=== PATIENT | female | born 1930 | race Two or more races ===

== ENCOUNTER → 2018-10-25 | Outpatient (CLI) | payer MEDICARE | END | disposition home or self-care (01) | LOC: LAB 11:55 | DX: M17.12 Unilateral primary osteoarthritis, left knee (principal); Z91.81 History of falling | CPT/HCPCS: 73562; 73610 ==

== ENCOUNTER 2019-04-24 17:29 | Inpatient (IN) | payer MEDICARE ==
[~2019-04-24] VITALS: Ht 160 cm; Wt 68.0 kg
[2019-04-24] MEDS ORDERED: ONDANSETRON HCL 4MG/2ML INJ IV STA (18:09)
[2019-04-24] MEDS ORDERED: MORPHINE SULFATE 4 MG/ML CPJ (NOT FOR IM USE) IV STA (18:09)
[2019-04-24] MEDS ORDERED: KETOROLAC 30MG/ML VIAL IV STA (18:09)
[2019-04-24 18:53] LABS: BASOPHILS % 0.6 % (0.0-2.0); HEMATOCRIT. 37.3 % (36.0-48.0); HEMOGLOBIN. 12.4 g/dL (12.0-16.0); LYMPHOCYTES % 50.2 % (20.0-50.0); MEAN CORPUSCULAR HEMOGLOBIN 29.5 pg (28.0-32.0); NEUTROPHILS % 34.2 % (40.0-76.0); PLATELET 304 x1000/uL (130-400); RED BLOOD CELL COUNT 4.19 mill/uL (4.2-5.4); RED CELL DISTRIBUTION WIDTH 14.6 % (11.6-14.6)
[2019-04-24 18:55] LABS: CHLORIDE 105 mEq/L (98-107)
[2019-04-24 18:58] LABS: PARTIAL THROMBOPLASTIN TIME 25.9 sec (23.4-31.0); PROTHROMBIN TIME 9.9 sec (9.6-11.0)
[2019-04-24] MEDS ORDERED: MORPHINE SULFATE 4 MG/ML CPJ (NOT FOR IM USE) IV ONE (19:45)
[2019-04-24] MEDS ORDERED: HYDRALAZINE 20MG/ML VIAL IV ONE (19:45)
[2019-04-24] MEDS ORDERED: PROPOFOL 200MG/20ML VIAL IV ONE (20:15)
[2019-04-24] MEDS ORDERED: MIDAZOLAM HCL 2 MG/2 ML VIAL IV ONE (20:15)
[2019-04-24] MEDS ORDERED: KETAMINE HCL 50 MG/ML 10ML IV ONE (20:15)
[2019-04-24] MEDS ORDERED: FENTANYL CITRATE/PF 50MCG/ML 2ML VIAL IV ONE (20:15)
[2019-04-24] MEDS ORDERED: HYDRALAZINE 20MG/ML VIAL IV PRN (23:45)
[2019-04-24] MEDS ORDERED: ONDANSETRON HCL 4MG/2ML INJ IV PRN (23:45)
[2019-04-24] MEDS ORDERED: TRAMADOL 50MG TABLET PO PRN (23:45)
[2019-04-24] MEDS ORDERED: MAGNESIUM/ALUMINUM HYDROXIDE/SIMETHICONE 30ML UDC PO PRN (23:45)
[2019-04-24] MEDS ORDERED: ACETAMINOPHEN 325MG TABLET PO PRN (23:45)
[2019-04-24] MEDS ORDERED: DIPHENHYDRAMINE 50MG/ML VIAL IV PRN (23:45)
[2019-04-25] VITALS: BP 128/40
[2019-04-25 01:39] VITALS: BP 128/40
[2019-04-25] MEDS ORDERED: ASPI-1393 PO (02:08)
[2019-04-25] MEDS ORDERED: GABA100C PO (02:08)
[2019-04-25] MEDS ORDERED: LORA-250 PO (02:08)
[2019-04-25 04:00] VITALS: BP 107/44
[2019-04-25] MEDS ORDERED: SODIUM CHLORIDE 0.9% INJ 3ML FLUSH IVF SCH (06:00)
[2019-04-25 08:00] VITALS: BP 141/56
[2019-04-25] MEDS ORDERED: GABAPENTIN 100MG CAPSULE PO SCH (09:00)
[2019-04-25 12:00] VITALS: BP 141/56
[2019-04-25 14:44] VITALS: BP 141/56
== END 2019-04-25 15:10 | disposition home or self-care (01) | DRG 563 ==
LOC: ER 17:29 → 5WST 21:04 → ENRESERV 23:35
PROVIDERS: ADMIT Internal Medicine; ATTEND Internal Medicine
PROC: 0RSJXZZ Reposition Right Shoulder Joint, External Approach (ICD-10-PCS; principal; 2019-04-24)
DX: S43.014A Anterior dislocation of right humerus, initial encounter (principal); I10 Essential (primary) hypertension; M19.90 Unspecified osteoarthritis, unspecified site; G62.9 Polyneuropathy, unspecified; R29.6 Repeated falls; Z96.643 Presence of artificial hip joint, bilateral; Z96.651 Presence of right artificial knee joint; W18.39XA Other fall on same level, initial encounter; Y93.89 Activity, other specified; Y92.89 Other specified places as the place of occurrence of the external cause; Y99.8 Other external cause status; Z79.82 Long term (current) use of aspirin; Z79.899 Other long term (current) drug therapy
CPT/HCPCS: 36415; 71045; 73030; 83880; 84484; 93005; 97162; 99285; J0360; J1885; J2250; J2270; J2405; J2704; J3010; J3490

== ENCOUNTER → 2020-05-09 | Outpatient (CLI) | payer MEDICARE, BC ==
[~2020-05-09] MED LIST: ASPI-1497 PO; GABA100C PO; LORA-250 PO
== END | disposition home or self-care (01) ==
LOC: RAD 12:29
PROVIDERS: ATTEND Internal Medicine Addiction Medicine
DX: M85.842 Other specified disorders of bone density and structure, left hand (principal); M85.88 Other specified disorders of bone density and structure, other site
CPT/HCPCS: 73110; 73130